=== PATIENT | female | born 1960 | race Caucasian/White ===

== ENCOUNTER 2021-03-01 23:34 | Emergency (ER) | payer BC ==
[~2021-03-01] VITALS: Ht 165.1 cm; Wt 59.0 kg
[2021-03-02] MEDS ORDERED: CEPHALEXIN500 M1 PO (00:13)
[2021-03-02] MEDS ORDERED: PYRIDIUM200 MG PO (00:13)
== END 2021-03-02 00:39 | disposition home or self-care (01) ==
LOC: ED 23:34
DX: N39.0 Urinary tract infection, site not specified (principal); R03.0 Elevated blood-pressure reading, without diagnosis of hypertension; Z88.5 Allergy status to narcotic agent; Z88.6 Allergy status to analgesic agent
CPT/HCPCS: 81001; 99283